=== PATIENT | female | born 1995 | race Caucasian/White ===

== ENCOUNTER → 2020-11-13 | Outpatient (CLI) | payer OTHER ==
[~2020-11-13] MED LIST: ANTIVERT 25MG25 MG PO; BENTYL10 MG PO; CLEOCIN HCL300 MG PO; MACROBID 1100 MG/CAP PO; NORCO 325 MG-51 TAB PO; ORAL PAIN REL9.35 GM MM; PREDNISONE20 MG PO; PRILOSEC 20MG20 MG PO; TYLENOL 325MG325 MG PO; TYLENOL 500MG500 MG PO; ULTRAM 50MG TAB50 MG PO; ZOFRAN ODT4 MG PO; [UNRECOGNIZED DRUG - OTHER] PO
== END ==
LOC: COL.RAD 11:00
DX: S12.591D Other nondisplaced fracture of sixth cervical vertebra, subsequent encounter for fracture with routine healing (principal); M43.12 Spondylolisthesis, cervical region